=== PATIENT | female | born 1950 | race Caucasian/White ===

== ENCOUNTER 2020-12-04 05:02 | Outpatient (REF) | payer MEDICARE, SELFPAY ==
[2020-12-04 05:16] LABS: PLT CLUMP 1; Red Cell Distribution Width 14.2 % (11.0-16.0)
[2020-12-04 05:17] LABS: Hematocrit 22.5 % (37-47); Hemoglobin 7.4 g/dl (12.0-16.0); Mean Corpuscular HGB Conc 32.9 g/dl (31.0-35.0); Mean Corpuscular Hemoglobin 27.5 pg (27.0-33.0); Mean Corpuscular Volume 83.6 fL (80-98); Mean Platelet Volume 9.2 fL (9.4-12.3); Red Blood Count 2.69 X10*6/uL (4.20-5.50); White Blood Count 3.7 X10*3/uL (4.8-10.8)
[2020-12-04 05:40] LABS: Platelet Count 11 X10*3/uL (160-400)
[2020-12-04 05:47] LABS: Alanine Aminotransferase 8 U/L (0-31); Albumin Level 2.9 g/dL (3.5-5.0); Alkaline Phosphatase 105 U/L (39-117); Anion Gap 11 (12-20); Aspartate Amino Transferase 7 U/L (5-31); Bilirubin Total 0.6 mg/dL (0.0-1.0); Blood Urea Nitrogen 12 mg/dL (9-16); Calcium 8.2 mg/dL (8.4-10.2); Carbon Dioxide 29 mmol/L (22-29); Chloride 98 mmol/L (96-108); Estimated Glomerular Filt Rate > 60; Glucose Random 102 mg/dL (60-115); Potassium 3.6 mmol/L (3.3-5.1); Sodium 134 mmol/L (135-145); Total Protein 5.7 g/dL (6.5-8.0)
[2020-12-04 06:25] LABS: Digoxin 0.5 ng/mL (0.8-2.0)
== END 2020-12-04 05:03 | disposition home or self-care (01) ==
LOC: HO.MMNH1L 05:02
PROVIDERS: Visit Provider Family Medicine
DX: I48.91 Unspecified atrial fibrillation (principal); D70.9 Neutropenia, unspecified
CPT/HCPCS: 36415; 80053; 80162; 85027

== ENCOUNTER 2020-12-05 04:40 | Outpatient (REF) | payer MEDICARE, SELFPAY ==
[2020-12-05 05:13] LABS: Hematocrit 22.6 % (37-47); Hemoglobin 7.6 g/dl (12.0-16.0); Mean Corpuscular HGB Conc 33.6 g/dl (31.0-35.0); Mean Corpuscular Hemoglobin 28.1 pg (27.0-33.0); Mean Corpuscular Volume 83.7 fL (80-98); PLT CLUMP 1
[2020-12-05 05:15] LABS: Mean Platelet Volume 10.1 fL (9.4-12.3); Red Cell Distribution Width 14.2 % (11.0-16.0); White Blood Count 3.8 X10*3/uL (4.8-10.8)
[2020-12-05 05:24] LABS: Platelet Count 9 X10*3/uL (160-400)
== END 2020-12-05 04:41 | disposition home or self-care (01) ==
LOC: HO.MMNH1L 04:40
PROVIDERS: Visit Provider Family Medicine
DX: I48.91 Unspecified atrial fibrillation (principal); D70.9 Neutropenia, unspecified; R50.81 Fever presenting with conditions classified elsewhere
CPT/HCPCS: 36415; 85027

== ENCOUNTER 2020-12-17 05:42 | Outpatient (REF) | payer SELFPAY ==
[2020-12-17 06:00] LABS: Hematocrit 21.2 % (37-47); Hemoglobin 7.2 g/dl (12.0-16.0); Mean Corpuscular Hemoglobin 28.1 pg (27.0-33.0); Mean Corpuscular Volume 82.8 fL (80-98); Mean Platelet Volume 10.6 fL (9.4-12.3); Red Blood Count 2.56 X10*6/uL (4.20-5.50); Red Cell Distribution Width 13.3 % (11.0-16.0)
[2020-12-17 06:02] LABS: Platelet Count 24 X10*3/uL (160-400); White Blood Count 1.3 X10*3/uL (4.8-10.8)
[2020-12-17 06:30] LABS: Anion Gap 9 (12-20); Blood Urea Nitrogen 11 mg/dL (9-16); Calcium 8.4 mg/dL (8.4-10.2); Carbon Dioxide 31 mmol/L (22-29); Chloride 97 mmol/L (96-108); Estimated Glomerular Filt Rate > 60; Glucose Random 99 mg/dL (60-115); Potassium 3.1 mmol/L (3.3-5.1); Sodium 134 mmol/L (135-145)
== END 2020-12-17 05:43 | disposition home or self-care (01) ==
LOC: HO.MMNH1L 05:42
PROVIDERS: Visit Provider Family Medicine
DX: C92.00 Acute myeloblastic leukemia, not having achieved remission (principal); I48.91 Unspecified atrial fibrillation; Z91.81 History of falling
CPT/HCPCS: 36415; 80048; 85027

== ENCOUNTER 2020-12-20 01:08 | Outpatient (REF) | payer SELFPAY ==
[2020-12-20 07:01] LABS: Mean Corpuscular HGB Conc 33.3 g/dl (31.0-35.0); Mean Corpuscular Hemoglobin 27.7 pg (27.0-33.0); Mean Corpuscular Volume 83.1 fL (80-98); Mean Platelet Volume 9.9 fL (9.4-12.3); Red Blood Count 2.31 X10*6/uL (4.20-5.50); Red Cell Distribution Width 13.7 % (11.0-16.0)
[2020-12-20 07:08] LABS: Platelet Count 30 X10*3/uL (160-400); White Blood Count 2.3 X10*3/uL (4.8-10.8)
[2020-12-20 07:22] LABS: Anion Gap 13 (12-20); Blood Urea Nitrogen 11 mg/dL (9-16); Calcium 8.1 mg/dL (8.4-10.2); Carbon Dioxide 28 mmol/L (22-29); Chloride 91 mmol/L (96-108); Estimated Glomerular Filt Rate > 60; Glucose Random 91 mg/dL (60-115); Sodium 129 mmol/L (135-145)
[2020-12-20 07:35] LABS: Hemoglobin 6.4 g/dl (12.0-16.0)
[2020-12-20 07:36] LABS: Hematocrit 19.2 % (37-47)
[2020-12-20 08:00] LABS: Digoxin 0.4 ng/mL (0.8-2.0)
== END 2020-12-20 01:09 | disposition home or self-care (01) ==
LOC: HO.MMNH1L 01:08
PROVIDERS: Visit Provider Family Medicine
DX: D64.9 Anemia, unspecified (principal); Z91.81 History of falling
CPT/HCPCS: 36415; 80048; 80162; 85027

== ENCOUNTER 2020-12-30 06:44 | Outpatient (REF) | payer SELFPAY ==
[2020-12-30 06:54] LABS: Imm Gran Abs Auto 0.15 X10*3/uL (0.00-0.03); Mean Corpuscular Volume 83.8 fL (80-98)
[2020-12-30 06:55] LABS: Eosinophils Percent Auto 0.2 % (0-4); Imm Gran Pct Auto 3.5 % (0.0-0.4); Lymphocytes Absolute Auto 1.3 X10*3/uL (1.2-4.9); Mean Corpuscular HGB Conc 33.7 g/dl (31.0-35.0); Mean Corpuscular Hemoglobin 28.3 pg (27.0-33.0); Mean Platelet Volume 10.4 fL (9.4-12.3); Monocytes Absolute Auto 1.1 X10*3/uL (0.1-1.2); Monocytes Percent Auto 26.2 % (2-11); Neutrophils Absolute Auto 1.7 X10*3/uL (2.0-8.3); Neutrophils Percent Auto 39.1 % (45-73); Red Blood Count 1.98 X10*6/uL (4.20-5.50); Red Cell Distribution Width 14.5 % (11.0-16.0); White Blood Count 4.2 X10*3/uL (4.8-10.8)
[2020-12-30 07:16] LABS: Hematocrit 16.6 % (37-47); Hemoglobin 5.6 g/dl (12.0-16.0)
[2020-12-30 07:17] LABS: Platelet Count 23 X10*3/uL (160-400)
[2020-12-30 07:18] LABS: Alanine Aminotransferase < 6 U/L (0-31); Albumin Level 2.3 g/dL (3.5-5.0); Alkaline Phosphatase 123 U/L (39-117); Anion Gap 19 (12-20); Aspartate Amino Transferase 10 U/L (5-31); Bilirubin Total 0.7 mg/dL (0.0-1.0); Blood Urea Nitrogen 19 mg/dL (9-16); Calcium 7.4 mg/dL (8.4-10.2); Carbon Dioxide 18 mmol/L (22-29); Chloride 97 mmol/L (96-108); Estimated Glomerular Filt Rate > 60; Glucose Random 93 mg/dL (60-115); Sodium 131 mmol/L (135-145); Total Protein 5.1 g/dL (6.5-8.0)
== END 2020-12-30 06:45 | disposition home or self-care (01) ==
LOC: HO.MMNH1L 06:44
PROVIDERS: Visit Provider Family Medicine
DX: C94.80 Other specified leukemias not having achieved remission (principal); I48.91 Unspecified atrial fibrillation
CPT/HCPCS: 36415; 80053; 85025

== ENCOUNTER 2021-01-13 05:58 | Outpatient (REF) | payer MEDICARE, SELFPAY ==
[2021-01-13 06:45] LABS: PLT CLUMP 1
[2021-01-13 06:47] LABS: Mean Corpuscular HGB Conc 34.9 g/dl (31.0-35.0); Mean Corpuscular Hemoglobin 29.3 pg (27.0-33.0); Mean Platelet Volume 13.2 fL (9.4-12.3); Red Cell Distribution Width 13.8 % (11.0-16.0)
[2021-01-13 06:49] LABS: White Blood Count 1.3 X10*3/uL (4.8-10.8)
[2021-01-13 06:56] LABS: Hemoglobin 4.4 g/dl (12.0-16.0)
[2021-01-13 06:57] LABS: Hematocrit 12.6 % (37-47); Platelet Count 8 X10*3/uL (160-400)
[2021-01-13 07:06] LABS: Anion Gap 10 (12-20); Blood Urea Nitrogen 9 mg/dL (9-16); Calcium 7.8 mg/dL (8.4-10.2); Carbon Dioxide 28 mmol/L (22-29); Chloride 99 mmol/L (96-108); Estimated Glomerular Filt Rate > 60; Glucose Random 99 mg/dL (60-115); Potassium 3.5 mmol/L (3.3-5.1); Sodium 133 mmol/L (135-145)
== END 2021-01-13 05:59 | disposition home or self-care (01) ==
LOC: HO.MMNH1L 05:58
PROVIDERS: Visit Provider Family Medicine
DX: C92.00 Acute myeloblastic leukemia, not having achieved remission (principal); I48.91 Unspecified atrial fibrillation
CPT/HCPCS: 36415; 80048; 85027

== ENCOUNTER 2021-01-17 00:14 | Outpatient (REF) | payer MEDICARE, SELFPAY ==
[2021-01-17 07:09] LABS: Eosinophils Absolute Auto 0.1 X10*3/uL (0.0-0.4); Eosinophils Percent Auto 5.5 % (0-4); Imm Gran Abs Auto 0.05 X10*3/uL (0.00-0.03); Imm Gran Pct Auto 4.6 % (0.0-0.4); Lymphocytes Absolute Auto 0.3 X10*3/uL (1.2-4.9); Lymphocytes Percent Auto 25.7 % (20-40); MANUAL DIFF FLAG SCAN; Mean Corpuscular HGB Conc 35.2 g/dl (31.0-35.0); Mean Corpuscular Hemoglobin 29.5 pg (27.0-33.0); Mean Corpuscular Volume 83.7 fL (80-98); Mean Platelet Volume 10.6 fL (9.4-12.3); Monocytes Absolute Auto 0.1 X10*3/uL (0.1-1.2); Neutrophils Absolute Auto 0.6 X10*3/uL (2.0-8.3); Neutrophils Percent Auto 53.2 % (45-73); Red Blood Count 1.29 X10*6/uL (4.20-5.50); Red Cell Distribution Width 13.5 % (11.0-16.0); SCAN SMEAR FLAG 1
[2021-01-17 07:30] LABS: White Blood Count 1.1 X10*3/uL (4.8-10.8)
[2021-01-17 07:32] LABS: Hematocrit 10.8 % (37-47); Hemoglobin 3.8 g/dl (12.0-16.0); Platelet Count 18 X10*3/uL (160-400)
[2021-01-17 07:35] LABS: Anion Gap 13 (12-20); Blood Urea Nitrogen 9 mg/dL (9-16); Calcium 7.6 mg/dL (8.4-10.2); Carbon Dioxide 25 mmol/L (22-29); Chloride 97 mmol/L (96-108); Estimated Glomerular Filt Rate > 60; Glucose Random 93 mg/dL (60-115); Sodium 132 mmol/L (135-145)
[2021-01-17 07:46] LABS: SLIDE REVIEW VERIFIED
== END 2021-01-17 00:15 | disposition home or self-care (01) ==
LOC: HO.MMNH1L 00:14
PROVIDERS: Visit Provider Family Medicine
DX: D64.9 Anemia, unspecified (principal); Z91.81 History of falling
CPT/HCPCS: 36415; 80048; 85025

== ENCOUNTER 2021-01-20 | Outpatient (REF) | payer SELFPAY ==
[2021-01-20 05:31] LABS: Mean Corpuscular HGB Conc 35.4 g/dl (31.0-35.0); Mean Corpuscular Hemoglobin 29.2 pg (27.0-33.0); Mean Corpuscular Volume 82.5 fL (80-98); Mean Platelet Volume 10.2 fL (9.4-12.3); Red Cell Distribution Width 13.8 % (11.0-16.0)
[2021-01-20 05:32] LABS: Platelet Count 28 X10*3/uL (160-400)
[2021-01-20 05:34] LABS: Anion Gap 12 (12-20); Blood Urea Nitrogen 9 mg/dL (9-16); Calcium 7.8 mg/dL (8.4-10.2); Carbon Dioxide 27 mmol/L (22-29); Chloride 98 mmol/L (96-108); Estimated Glomerular Filt Rate > 60; Glucose Random 102 mg/dL (60-115); Hematocrit 9.9 % (37-47); Hemoglobin 3.5 g/dl (12.0-16.0); Potassium 2.8 mmol/L (3.3-5.1); Sodium 134 mmol/L (135-145)
== END 2021-01-20 00:01 | disposition home or self-care (01) ==
LOC: HO.MMNH1L
PROVIDERS: Visit Provider Family Medicine
DX: C92.00 Acute myeloblastic leukemia, not having achieved remission (principal); I48.91 Unspecified atrial fibrillation
CPT/HCPCS: 36415; 80048; 85027

== ENCOUNTER 2021-01-24 01:06 | Outpatient (REF) | payer MEDICARE, SELFPAY ==
[2021-01-24 07:19] LABS: Eosinophils Absolute Auto 0.1 X10*3/uL (0.0-0.4); Eosinophils Percent Auto 4.3 % (0-4); Imm Gran Abs Auto 0.05 X10*3/uL (0.00-0.03); Imm Gran Pct Auto 4.3 % (0.0-0.4); Lymphocytes Absolute Auto 0.2 X10*3/uL (1.2-4.9); Lymphocytes Percent Auto 18.3 % (20-40); MANUAL DIFF FLAG SCAN; Mean Corpuscular HGB Conc 34.6 g/dl (31.0-35.0); Mean Corpuscular Hemoglobin 28.6 pg (27.0-33.0); Mean Corpuscular Volume 82.7 fL (80-98); Monocytes Absolute Auto 0.3 X10*3/uL (0.1-1.2); Monocytes Percent Auto 22.6 % (2-11); Neutrophils Absolute Auto 0.6 X10*3/uL (2.0-8.3); Neutrophils Percent Auto 50.5 % (45-73); PLT CLUMP 1; Red Blood Count 0.98 X10*6/uL (4.20-5.50); Red Cell Distribution Width 13.6 % (11.0-16.0); SCAN SMEAR FLAG 1
[2021-01-24 07:31] LABS: Hematocrit 8.1 % (37-47); Hemoglobin 2.8 g/dl (12.0-16.0)
[2021-01-24 07:32] LABS: White Blood Count 1.2 X10*3/uL (4.8-10.8)
[2021-01-24 07:33] LABS: Anion Gap 11 (12-20); Blood Urea Nitrogen 8 mg/dL (9-16); Calcium 7.5 mg/dL (8.4-10.2); Carbon Dioxide 29 mmol/L (22-29); Chloride 98 mmol/L (96-108); Estimated Glomerular Filt Rate > 60; Glucose Random 91 mg/dL (60-115); Potassium 2.8 mmol/L (3.3-5.1); Sodium 135 mmol/L (135-145)
[2021-01-24 07:44] LABS: Platelet Count 33 X10*3/uL (160-400); SLIDE REVIEW VERIFIED
== END 2021-01-24 01:07 | disposition home or self-care (01) ==
LOC: HO.MMNH1L 01:06
PROVIDERS: Visit Provider Family Medicine
DX: D64.9 Anemia, unspecified (principal); Z91.81 History of falling
CPT/HCPCS: 36415; 80048; 85025